=== PATIENT | male | born 1995 | race Caucasian/White ===

== ENCOUNTER → 2019-08-21 15:52 | Outpatient (CLI) | payer OTHER, SELFPAY ==
--- NOTE | 2019-08-21 16:00 | DI.RAD.S_ITS ---
PROCEDURE: XR CERVICAL SPINE 2V OR 3V INDICATIONS: Neck pain, headache, nausea, recent fall TECHNIQUE: 3 view(s) of the cervical spine were acquired. COMPARISON: None. FINDINGS: Bones: No fractures or dislocations to the C7 level. The lateral masses of C1 appear intact on the odontoid view. No suspicious bony lesions. Mild upper cervical kyphosis at C2-C4. Soft tissues: No prevertebral soft tissue swelling. IMPRESSION: No acute fracture. No osseous lesion. If symptoms and/or clinical suspicion for pathology persist, further assessment with repeat, or advanced imaging (e.g., CT, MRI, or bone scan) may be helpful for further assessment. Dictated by: Dori Bond M.D. on 08/21/2019 at 17:21 Approved by: Dori Bond M.D. on 08/21/2019 at 17:21
== END ==
PROVIDERS: PCP Family Medicine; Referring Provider Family Medicine; Visit Provider Family Medicine
DX: M54.2 Cervicalgia (principal); R51 Headache; R11.0 Nausea
CPT/HCPCS: 72040